=== PATIENT | female | born 1960 | race Caucasian/White ===

== ENCOUNTER → 2017-09-23 | Outpatient (CLI) | payer OTHER | LOC: FIMAGING 12:01 | PROVIDERS: ATTEND Family Medicine | DX: Z12.31 Encounter for screening mammogram for malignant neoplasm of breast (principal) | CPT/HCPCS: G0202 ==

== ENCOUNTER 2017-11-19 11:31 | Inpatient (IN) | payer OTHER ==
--- NOTE | 2017-11-19 11:45 | EDPHY ---
H & P Stated Complaint: Midsternal Cp since~1000am with bilat hand "tingling" Time Seen by Provider: 11/19/17 11:45 - Personal History Current Tetanus/Diphtheria Vaccine: Unsure Current Tetanus Diphtheria and Acellular Pertussis (TDAP): Unsure - Medical/Surgical History Hx Asthma: No Hx Chronic Respiratory Disease: No Hx Diabetes: No Hx Cardiac Disease: No Hx Renal Disease: No Hx Cirrhosis: No Hx Alcoholism: No Hx HIV/AIDS: No Hx Splenectomy or Spleen Trauma: No Other PMH: hypertension, COPD - Social History Smoking Status: Former smoker Constitutional: Initial Vital Signs Temperature (C) 37.0 C 11/19/17 11:36 Heart Rate 107 H 11/19/17 11:36 Respiratory Rate 16 11/19/17 11:36 Blood Pressure 145/101 H 11/19/17 11:36 O2 Sat (%) 97 11/19/17 11:36 O2 Delivery Mode Room Air Allergies/Adverse Reactions: benzoyl peroxide [Benzoyl Peroxide] Allergy (Verified 08/14/16 03:38) Home Medications: Medication Instructions Recorded Aspirin EC [Aspirin EC 81 mg (*)] 81 mg PO DAILY 08/14/16 Hydrochlorothiazide [HCTZ (*)] 25 mg PO DAILY 08/14/16 Losartan Potassium [Cozaar 50 mg 50 mg PO DAILY 08/14/16 (*)] Albuterol [Proventil Inhaler HFA 2 puffs IH Q4HRS PRN #1 mdi 08/17/16 (*)] Inhaler, Assist Devices [Space 1 each MC PRN PRN #1 spacer 08/17/16 Chamber Plus] Tiotropium Inhaler [Spiriva 18 mcg IH DAILY #1 mdi 08/17/16 Handihaler] predniSONE 40 mg PO DAILY #2 tablet 08/17/16 Medical Decision Making - Diagnostics Imaging Results: Imaging Impressions Chest X-Ray 11/19/17 11:48 Impression: Normal chest. Imaging: I viewed and interpreted images myself ED Course/Re-evaluation: CHIEF COMPLAINT: Chest pressure HISTORY OF PRESENT ILLNESS: The patient is a 56 y/o female with a history of COPD, anxiety, and tobacco use arriving with her roommate complaining of chest pressure and bilateral hand tingling onset at 10:00 this morning, 2.5 hours ago. She was driving when she developed sudden diffuse chest pressure followed by facial and bilateral hand tingling. Symptoms are still present, but have been slowly subsiding since onset. She notes she was moving boxes around earlier today and had no chest pain or dyspnea at that time. She has not been able to recreate or exacerbate her symptoms with movement. She remembers a similar episode to this many years ago that she was not evaluated for. She says her pressure currently feels like "maybe a toddler sitting there rather than a kid." No recent long travel or history of blood clots. No personal history of cardiac disease or prior cardiac testing. Strong family history of cardiac disease. REVIEW OF SYSTEMS: A 10 point review of systems was performed and is negative with the exception of the elements mentioned in the history of present illness. PHYSICAL EXAM: HR, BP, O2 Sat, RR. Temp noted General Appearance: Alert, well hydrated, appropriate, and non-toxic appearing. Obese. Head: Atraumatic without scalp tenderness or obvious injury Eyes: Strabismus, no trauma, no injection. Nose: Atraumatic, no rhinorrhea, clear. Throat: Mucus membranes moist. Neck: Supple, nontender, no lymphadenopathy. Respiratory: No retractions, no distress, no wheezes, and no accessory muscle use. Lungs are clear to auscultation bilaterally. Cardiovascular: Tachycardic regular rate and rhythm, no murmurs, rubs, or gallops. Good capillary refill all extremities. Gastrointestinal: Abdomen is soft, nontender, non-distended, no masses, no rebound, no guarding, no peritoneal signs. Musculoskeletal: Normal active ROM of all extremities, atraumatic. Neurological: Alert, appropriate, and interactive. Nonfocal neuro exam. Skin: No rashes, good turgor, no nodules on palpation. Past medical history: COPD, anxiety, panic attacks, blindness in right eye Past surgical history: Denies Family history: Father has CHF, pacemaker, defibrillator, hypercholesterolemia. Mother has hypertension and hypercholesterolemia. No cardiac issues in siblings. Social history: Former smoker, quit 1 year ago. PCP: [facility]. Roommate at bedside. DIAGNOSTICS/PROCEDURES/CRITICAL CARE TIME: The 12 lead EKG was interpreted by myself. Sinus tachycardia, occasional PVCs. See hard copy and/or "tracemaster" electronic copy for interpretation. Chest x-ray: negative DIFFERENTIAL DIAGNOSIS: The differential diagnosis for the patient's chest pain included but was not limited to myocardial ischemia, pulmonary embolus, chest wall pain, pleural inflammation, and pulmonary infectious causes. MEDICAL DECISION MAKING: This patient is a 56 y/o female with COPD and long smoking history who presents with a 2.5-hour history of chest pressure and bilateral hand tingling that is slowly improving but still present. Symptoms began while at rest. She has a strong family history for heart disease, though no personal diagnosed cardiac disease. Her lungs are clear and she is mildly tachycardic on exam. Pain is not reproducible with palpation or movement. No infectious symptoms. Plan for cardiac work up including IV, labs, EKG, chest x-ray. 324mg PO aspirin and 0.4mg SL nitro administered. Labs show normal d-dimer and troponin, hemoconcentration with Hgb of 20. This is likely related to her COPD, living at altitude, and smoking history. Due to this in combination with continuing chest pressure, I've recommended admission for provocative cardiac testing. Patient agrees to admission. 1340: Consulted with Dr. Yang, information consultant. She will consult during admission. Repeat troponin @ 16:00. Spoke with hospitalist service. Dr. Ardon accepts admission for chest pain and polycythemia. - Data Points Laboratory Results: Laboratory Results 11/19/17 11:50 11/19/17 11:50 11/19/17 11/19/17 11/19/17 11:50 11:50 11:50 WBC 9.98 10^3/uL H 10^3/uL (3.80-9.50) RBC 5.88 10^6/uL H 10^6/uL (4.18-5.33) Hgb 20.2 g/dL H* g/dL (12.6-16.3) Hct 54.1 % H % (38.0-47.0) MCV 92.0 fL fL (81.5-99.8) MCH 34.4 pg H pg (27.9-34.1) MCHC 37.3 g/dL H g/dL (32.4-36.7) RDW 12.5 % % (11.5-15.2) Plt Count 311 10^3/uL 10^3/uL (150-400) MPV 10.0 fL fL (8.7-11.7) Neut % (Auto) 75.1 % H % (39.3-74.2) Lymph % (Auto) 15.1 % % (15.0-45.0) [place] % (Auto) 5.9 % % (4.5-13.0) Eos % (Auto) 2.6 % % (0.6-7.6) Baso % (Auto) 1.0 % % (0.3-1.7) Nucleat RBC Rel Count 0.0 % % (0.0-0.2) Absolute Neuts (auto) 7.49 10^3/uL H 10^3/uL (1.70-6.50) Absolute Lymphs (auto) 1.51 10^3/uL 10^3/uL (1.00-3.00) Absolute Monos (auto) 0.59 10^3/uL 10^3/uL (0.30-0.80) Absolute Eos (auto) 0.26 10^3/uL 10^3/uL (0.03-0.40) Absolute Basos (auto) 0.10 10^3/uL 10^3/uL (0.02-0.10) Absolute Nucleated RBC 0.00 10^3/uL 10^3/uL (0-0.01) Immature Gran % 0.3 % % (0.0-1.1) Immature Gran # 0.03 10^3/uL 10^3/uL (0.00-0.10) PT 13.6 SEC SEC (12.0-15.0) INR 1.02 (0.83-1.16) APTT 28.7 SEC SEC (23.0-38.0) D-Dimer < 0.27 ug/mLFEU ug/mLFEU (0.00-0.50) Sodium 141 mEq/L mEq/L (135-145) Potassium 3.5 mEq/L mEq/L (3.5-5.2) Chloride 103 mEq/L mEq/L (97-110) Carbon Dioxide 20 mEq/l L mEq/l (22-31) Anion Gap 18 mEq/L H mEq/L (8-16) BUN 8 mg/dL mg/dL (7-23) Creatinine 0.8 mg/dL mg/dL (0.6-1.0) Estimated GFR > 60 Glucose 106 mg/dL H mg/dL (70-100) Calcium 10.7 mg/dL H mg/dL (8.5-10.4) Phosphorus 2.0 mg/dL L mg/dL (2.5-4.5) Troponin I < 0.012 ng/mL ng/mL (0.000-0.034) NT-Pro-B Natriuret Pep 46 pg/mL pg/mL (0-125) Medications Given: Discontinued Medications Aspirin (Aspirin) 324 mg PO EDNOW ONE Stop: 11/19/17 13:43 Last Admin: 11/19/17 13:56 Dose: 324 mg Nitroglycerin (Nitro-Bid 2%) 1 inch TP EDNOW ONE Stop: 11/19/17 13:43 Last Admin: 11/19/17 13:56 Dose: 1 inch Departure - Departure Disposition: [facility] Inpatient Acute Clinical Impression: Polycythemia Chest pain Qualifiers: Chest pain type: other chest pain Qualified Code(s): R07.89 - Other chest pain Condition: Fair Report Scribed for: Mathew Judd Report Scribed by: Honey Gillespie Date of Report: 11/19/17 Time of Report: 14:17
--- NOTE | 2017-11-19 11:46 | CPEKG ---
Heart Rate: 115 RR Interval: 522 P-R Interval: 144 QRSD Interval: 86 QT Interval: 320 QTC Interval: 443 P [place]: 68 QRS [place]: 41 T Wave [place]: -55 EKG Severity - ABNORMAL ECG - EKG Impression: SINUS TACHYCARDIA EKG Impression: PROBABLE LEFT ATRIAL ABNORMALITY EKG Impression: PROBABLE INFERIOR INFARCT, AGE INDETERMINATE Electronically Signed By: Mathew Judd 19-Nov-2017 13:56:06
[2017-11-19 12:04] LABS: INR 1.02 (0.83-1.16); PROTIME(PATIENT) 13.6 SEC (12.0-15.0)
[2017-11-19 13:34] LABS: PLATELET COUNT 311 10^3/uL (150-400)
[2017-11-19] MEDS ORDERED: NITROGLYCERIN 2% 1 GM PACKET TP ONE (13:42)
[2017-11-19] MEDS ORDERED: ASPIRIN 81 MG CHEWABLE TAB PO ONE (13:42)
[2017-11-19] MEDS ORDERED: ACETAMINOPHEN 325 MG TAB PO PRN (14:29)
[2017-11-19] MEDS ORDERED: ONDANSETRON DISINTEGRATING 4 MG TAB PO PRN (14:29)
[2017-11-19] MEDS ORDERED: ONDANSETRON 4 MG/2 ML VIAL IVP PRN (14:29)
[2017-11-19] MEDS ORDERED: NS 1,000 ML IV SCH (14:30)
[2017-11-19] MEDS ORDERED: ALBUTEROL 60 PUFFS/8 GM MDI IH PRN (15:08)
--- NOTE | 2017-11-19 15:58 | GHP ---
[f rep st] HISTORY AND PHYSICAL DATE OF ADMISSION: 11/19/2017 CHIEF COMPLAINT: Chest pressure with associated bilateral hand tingling. HISTORY OF PRESENT ILLNESS: The patient is a 56-year-old female with a history of COPD, who developed chest pressure with bilateral hand tingling that extended back to her lip area and to the top of her scalp area. Prior to this symptom occurring, she had been moving boxes up and down a flight of stairs. Her plan was to donate the boxes because she is in the process of moving to the [facility]. She has been under more stress than usual because of planning this move. After moving all the boxes, she rested for a while because she was very short of breath. The shortness of breath resolved. The chest pressure developed when she was en route driving to [facility] to drop off the boxes. She was not hyperventilating. She pulled off the side of the road because she got lightheaded and dizzy. She called her friend who brought her to the emergency room. During my interview, she continues to have the chest pressure, but it is better since the placement of a nitroglycerin patch. Also, today she has not been eating or drinking well. Her plan was to eat lunch after she donated her boxes. She also had a cup of coffee earlier this morning and has not been drinking much. During my interview she has been tachycardic. She says this is her baseline, that her heart always goes fast. She has not had this further evaluated. She has had an intentional weight loss of 25 pounds. PAST MEDICAL HISTORY: 1. COPD diagnosed in 2016. 2. Hypertension. 3. Amblyopia in the right eye. PAST SURGICAL HISTORY: 1. . 2. Breast lumpectomy that was noted to be benign. SOCIAL HISTORY: She has 2 children. She is a former smoker. She quit in 2016 after being admitted with COPD. She drinks a glass of wine with dinner. 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 She is in a relationship and plans to move to [place] to be with her significant other. FAMILY HISTORY: Her mother at age 69 from complications of pancreatic cancer and hypertension. She also had high cholesterol. Her father is still alive. He has congestive heart failure, coronary artery disease, pacer and defibrillator in place. ALLERGIES: Environmental. HOME MEDICATIONS: Losartan hydrochlorothiazide 100/25 mg 1 tab daily, Singulair 10 mg p.o. at bedtime, Advair 250/50 one puff b.i.d., Spiriva 18 mics daily, aspirin 81 mg daily, Proventil inhaler 2 puffs daily and Norvasc 10 mg daily. REVIEW OF SYSTEMS: A 10-point review of system was performed, was negative other than the pertinent positives in the HPI and past medical history. PHYSICAL EXAM: GENERAL: Nalini is a 56-year-old female who does not appear to be in any distress and appears to be her stated age. VITAL SIGNS: Blood pressure is 140/105, heart rate is 119, O2 sats on room air 96%, respiratory rate is 16, temperature is 37 degrees Celsius. EYES: Pupils are equal and reactive. Her right eye deviates outward. ENT: Normal ears, hearing intact. NECK: Trachea is midline. CARDIOVASCULAR: She is regular rate and rhythm. She is tachycardic. She does not have murmurs, rubs, or gallops noted. She has trace ankle edema. CHEST AND LUNGS: Normal respiratory effort. Clear without wheezing, rales, rhonchi. ABDOMEN: Soft, nontender. No rebound or guarding. SKIN: No rashes or ulcer. MUSCULOSKELETAL: Equal upper and lower extremity strength. PSYCHIATRIC: She is alert and oriented. Normal mood, affect, normal judgment, insight and normal memory. DATA: Reviewed. Chemistry panel shows a sodium 141, potassium 3.5, chloride of 103, CO2 of 20, BUN of 8, creatinine of 0.8, glucose of 106, calcium of 10.7 , phosphorus of 2. Troponin less than 0.012. BNP of 46. Coags show a D-dimer less than 0.27. Protime of 13.6, INR of 1.02. CBC shows a white blood cell count of 9.98, RBC of 5.88, hemoglobin of 20.2, hematocrit of 54.1, platelet count of 311. An EKG, which I viewed and evaluated myself, shows a sinus tachycardia. A chest x-ray was performed, which showed nothing acute. Reviewed her care with Mathew Judd, emergency room physician. ASSESSMENT AND PLAN: 1. Chest pressure. Will cycle her troponins. It does not appear that she is having an acute coronary syndrome. She could possibly have a pulmonary emboli, even though she has a stable D-dimer with her ongoing tachycardia. An echocardiogram has been ordered. She will be seen by Dr. Zahida Yang. Other differentials could be that she could possibly have costochondritis from actively moving boxes up and down the stairs. She does not appear to have any type of infectious etiology causing this. If troponin remain negative, will get a Lexiscan in the morning and make her NPO after midnight. 2. Tachycardia. Will check a TSH. She also could be dehydrated. She has not been drinking or eating well today. 3. Hemoconcentration with a hemoglobin of 20. This is likely related to her chronic obstructive pulmonary disease and possible dehydration. Will recheck her labs in the morning and hydrate overnight. 4. Hypertension. Will resume her home medications. 5. Deep vein thrombosis prophylaxis, low risk. 6. Length of stay: She will likely require less than a 2-midnight stay, which will make her observation status. /[id number]/MODL MTDD
--- NOTE | 2017-11-19 19:03 | GCON ---
[f rep st] CONSULTATION DATE OF CONSULTATION: 11/19/2017 CHIEF COMPLAINT: Chest pain. HISTORY OF PRESENT ILLNESS: We were asked by Edith Garsia NP, to visit with the patient. The patient is a pleasant 56-year-old female with a history of COPD that is not oxygen dependent. Jodi lan also has hypertension but no known history of coronary disease, heart failure, or arrhythmia. She was in her usual state of reasonably good health until this morning. She has been under significant stress due to an upcoming move and had been moving a lot of boxes up and down stairs. She felt dyspn eic related to this and then she laid down to rest. She used her inhaler. She then got in her car a nd started driving. At that point, she experienced chest pressure with bilateral arm tingling as wel l as some tingling and numbness in her face. Because of these symptoms, she presented to the ER. Fi rst EKG is nonischemic and 1st troponin is negative. She was given nitro paste and admitted for furt her observation. Upon my evaluation, she states that her symptoms have largely subsided. She has very mild (1/10) kris st pressure. Her shortness of breath is a little bit worse than normal this morning, but is now stab le. She had not noticed any palpitations. She felt a little bit lightheaded this morning, but did n ot have syncope. She does not have problems with lower extremity edema. In general, when she is a little bit more active she does notice some central chest pressure. She re ports having a stress test many years ago but none recently. REVIEW OF SYSTEMS: She had 2 days of fever and pharyngitis about a week ago, but states that this carrington s resolved. Otherwise, a full 10-point review is performed and is negative except that which is outl ined above. Her facial tingling has resolved. PAST MEDICAL HISTORY: 1. COPD. 2. Hypertension. 3. Amblyopia. 4. . 5. History of benign breast lumpectomy. OUTPATIENT MEDICATIONS: Losartan, hydrochlorothiazide, Singulair, Advair, Spiriva, aspirin, Proventi l, and Norvasc. SOCIAL HISTORY: The patient quit smoking about a year ago. She smoked on and off for 35 years. She has 1-2 glasses of wine nightly. She is an personnel training officer. FAMILY HISTORY: Father has a pacemaker, congestive heart failure, coronary disease with history of M I. PHYSICAL EXAM: VITAL SIGNS: Blood pressure 140/105, heart rate is 119, oxygen saturation 96% on kendal m air. She is afebrile. GENERAL: A well-appearing, middle-aged female in no acute distress. HEENT : Sclerae free and clear of jaundice. Mucous membranes are moist. CARDIOVASCULAR: JVP is less fide n 10. Carotids equal and 2+ without bruit. Regular rate and rhythm with occasional ectopy. No murm ur, rub, or gallop. LUNGS: Clear to auscultation without wheezes, rhonchi, or rales. ABDOMEN: Sof t, nontender, nondistended without bruits, masses, or hepatosplenomegaly. EXTREMITIES: Warm and wel l perfused without cyanosis, clubbing, or edema. No deformity. Intact distal pulses. NEURO: Alert and oriented x3 without gross focal neurologic deficits. LABORATORY DATA: White count 9.98 with a slight left shift. Hemoglobin 20, hematocrit 54.1, and adán telets are 311. D-dimer is negative. INR was 1. First troponin negative. BNP 46. TSH is normal. S odium 141, potassium 3.5, chloride 103, bicarb 20, BUN 8, creatinine 0.8. EKG reviewed by me shows sinus tachycardia at 115 beats per minute. Biatrial abnormality. Small inf erior Q-waves that are borderline diagnostic. IMAGING: Chest x-ray reviewed by me: No acute cardiopulmonary process. ASSESSMENT AND PLAN: A 56-year-old female with cardiac risk factors of past smoking, family history, overweight, and hypertension. She presents with chest pressure and associated bilateral arm tinglin g that has largely resolved. First EKG and first troponin are reassuring. It is also reassuring fide t she has a normal BNP. However, agree with observation for rule out myocardial infarction protocol and further risk stratification. 1. Chest pain: Cycle troponins. Agree with aspirin. If serial troponins are negative, she will carrington ve a nuclear stress test in the morning. Ideally, she could exercise on the treadmill, but if she is unable to reach target heart rate would have her do a Lexiscan stress test. We will order echocardi ogram for this evening to make sure she does not have ongoing wall motion abnormalities. 2. Chronic obstructive pulmonary disease. This may be more significant than at first diagnosis, giv en her polycythemia. She may benefit from outpatient pulmonary consult. She may also need sleep med icine evaluation. She is currently not hypoxic and on room air. Lungs are clear on exam and on x-ra y. 3. Hypertension. Slightly elevated. Continue home medications. Follow. Thank you for allowing us to participate in this patient's care. We will follow with you. /[id number]/MODL
--- NOTE | 2017-11-19 19:05 | ECHO ---
[email or web address] [address] [address] Main: [phone] Fax: Transthoracic Echocardiogram Name: KARLEE MCDANIEL MR#: [id number] Study Date: 11/19/2017 Study Time: 05:55 PM Date of : 1960 Age: 56 year(s) Height: ( ) Weight: ( ) BSA: Gender: Female Examination: Echo Indication: Chest Pain Image Quality: Technically Difficult Contrast: Requested by: Edith Garsia BP: / Heart Rate: Rhythm: Indication: Chest Pain Procedure Staff Corrections Sergeant: Beba Chowdary Reading Physician: Zahida Yang Requesting Provider: Zahida Yang Conclusions: Normal size left ventricle. Asymmetrical septal LV hypertrophy. Global hypercontractility of the left ventricle. EF is 71 %. No regional wall motion abnormality. Grade 1 diastolic dysfunction (abnormal relaxation). Normal size right ventricle. Normal RV function. Trivial to mild mitral regurgitation. No prior echo Measurements: Chambers Valvular Assessment AV/MV Valvular Assessment TV/PV Normal Normal Normal Name Value Range Name Value Range Name Value Range IVSd (2D): 1.3 cm (0.6 cm-1.1 AV meanP mmHg ( - ) cm) LVOT Vmax: 1.30 m/s (0.7 m/s-1.1 LVDd (2D): 3.5 cm (3.9 cm-5.3 m/s) cm) MV E Vmax: 0.57 m/s ( - ) LVDs (2D): 2.2 cm (2.1 cm-4 MV A Vmax: 0.93 m/s ( - ) cm) MV E/A: 0.61 ( - ) LVPWd (2D): 0.8 cm ( - ) LVEF (BP): 71 % (>=55 %) Continued Measurements: Chambers Valvular Assessment AV/MV Valvular Assessment TV/PV Name Value Name Value Name Value LADs Lon.5 cm MV DecTime: 177 m/s CVP (est.): 10 mmHg Patient: KARLEE MCDANIEL Study Date: 11/19/2017 Page 1 of 2 05:55 PM LA Area: 12.4 cm2 MV E/E' Lateral: 6.90 LA Volume: 28 ml TAPSE: 1.7 cm Additional Vessels Name Value Ao Ascendin.5 cm Findings: Left Ventricle: Normal size left ventricle. Asymmetrical septal LV hypertrophy. Global hypercontractility of the left ventricle. EF is 71 %. No regional wall motion abnormality. Grade 1 diastolic dysfunction (abnormal relaxation). Right Ventricle: Normal size right ventricle. Normal RV function. Left Atrium: The left atrium is normal in size. Right Atrium: The right atrium is normal in size. Mitral Valve: The mitral valve is normal in appearance and function. Trivial to mild mitral regurgitation. No mitral stenosis is present. Aortic Valve: The aortic valve is normal in appearance and function. There is no aortic valve regurgitation. No aortic valve stenosis is present. Tricuspid Valve: The tricuspid valve is normal in appearance and function. There is no significant tricuspid valve regurgitation. Pulmonic Valve: Pulmonary valve not well visualized. Aorta: Normal size ascending aorta measuring 3.5 cm. IVC: Normal size and course of the IVC. Pericardium: No pericardial effusion. There is pericardial fat. (No Signature Object) Patient: KARLEE MCDANIEL Study Date: 11/19/2017 Page 2 of 2 05:55 PM [id number]
[2017-11-19] MEDS: FLUTICASONE/SALMETER 250/50MCG DISKUS IH SCH (20:29)
[2017-11-19] MEDS: MONTELUKAST SODIUM 10 MG TAB PO SCH (20:30)
[2017-11-20 04:40] LABS: PLATELET COUNT 253 10^3/uL (150-400)
--- NOTE | 2017-11-20 08:22 | CPEKG ---
Heart Rate: 81 RR Interval: 741 P-R Interval: 152 QRSD Interval: 102 QT Interval: 380 QTC Interval: 441 P [place]: 75 QRS [place]: 47 T Wave [place]: 70 EKG Severity - BORDERLINE ECG - EKG Impression: SINUS RHYTHM EKG Impression: BORDERLINE T ABNORMALITIES, ANT-LAT LEADS Electronically Signed By: Fercho Zhang 20-Nov-2017 08:50:13
[2017-11-20] MEDS: FLUTICASONE/SALMETER 250/50MCG DISKUS IH SCH ×2 (08:26→20:10)
[2017-11-20] MEDS: TIOTROPIUM INHALER 18 MCG/DOSE 5 DOSE/MDI IH SCH (08:27)
[2017-11-20] MEDS ORDERED: REGADENOSON 0.4 MG/5 ML SYR IVP ONE (09:21)
[2017-11-20] MEDS: ASPIRIN EC 81 MG TAB PO SCH (09:27)
--- NOTE | 2017-11-20 09:53 | PDCARPN ---
Cardiology Progress Note Assessment/Plan: Assessment: 1. Chest pain 2. Hypertension Plan: 56-year-old female with hypertension, admitted with atypical chest discomfort. Has ruled out for myocardial infarction with 2 troponin levels. Lexiscan Cardiolite stress test was performed this morning, the results are pending at time of this dictation. 11/20/17 09:52 Subjective: Reports no further episodes of chest pain Time Spent With Patient: 10 min Objective: Vital Signs (8 Hrs) Temp Pulse Resp BP Pulse Ox 11/20/17 08:33 83 16 94 11/20/17 07:49 36.7 C 83 15 130/97 H 15 L 11/20/17 03:05 36.5 C 80 16 124/79 H 92 Intake/Output (24 Hrs) 11/18/17 11/19/17 11/20/17 11:59 11:59 11:59 Intake Total 800 Balance 800 Intake: Oral (ml) 700 IV Intake (ml) 100 Other: Weight 77.111 kg Intake Quantity Yes Sufficient Number of Voids Toilet 2 Result Diagrams: 11/20/17 03:36 11/20/17 03:36 Cardiac Labs: Cardiac Lab Results (72 Hrs) 11/19/17 11/19/17 17:50 16:50 Troponin I < 0.012 REJ Telemetry: Normal sinus rhythm ICD10 Worksheet Patient Problems: Problems Problem Status Onset Acute asthma Acute Hypoxia Acute Exacerbation of asthma Acute Chronic obstructive pulmonary disease with acute exacerbation Acute Chest pain Acute Polycythemia Acute
--- NOTE | 2017-11-20 10:11 | CPIP ---
[f rep st] INVASIVE CARDIAC PROCEDURE PROCEDURE PERFORMED: Lexiscan Cardiolite stress test. PROCEDURE: Appropriate consents were signed and monitoring was established on 2 [place] telemetry floor . Baseline EKG shows normal sinus rhythm without any acute ST or T-wave changes. After administrati on of Lexiscan, there were no changes in the EKG. The patient tolerated the procedure well without a ny immediate complications. The patient's nuclear stress test will be read by the radiologist and reported separately. /[id number]/MODL
[2017-11-20] MEDS ORDERED: [UNRECOGNIZED DRUG - OTHER] PO SCH (13:15)
[2017-11-20] MEDS ORDERED: LOSARTAN PO SCH (13:15)
[2017-11-20] MEDS ORDERED: HYDROCHLOROTHIAZIDE PO SCH (13:15)
--- NOTE | 2017-11-20 14:01 | HOSPPROG ---
Hospitalist Progress Note Assessment/Plan: # Acute chest pain - with associated arm tingling- symptoms have resolved overnight Telemetry (personally reviewed and interpreted) sinus rhythm Troponin <0.012 x 2 and EKGs overnight negative- oxygen saturations 94% on room air - stress nuclear imaging with abnormality - plan for rest images in a.m. - continue telemetry - continue aspirin 81 mg daily # hypertension- will reconcile patient's home Zestoretic # prophylaxis Lovenox # diet cardiac # disposition greater than 2 midnights as the patient requires additional diagnostic workup for chest pain I have discussed case with Dr. Zhang- we will plan for rest images in the morning Subjective: Chest pain resolved Objective: Vital Signs Temp Pulse Resp BP Pulse Ox 36.8 C 83 16 138/95 H 91 L 11/20/17 11:23 11/20/17 11:23 11/20/17 11:23 11/20/17 11:23 11/20/17 11:23 Laboratory Results 11/20/17 03:36 11/20/17 03:36 11/19/17 11/20/17 11/21/17 05:59 05:59 05:59 Intake Total 800 Balance 800 PT 13.6 SEC (12.0-15.0) 11/19/17 11:50 INR 1.02 (0.83-1.16) 11/19/17 11:50 - Physical Exam Constitutional: no apparent distress Eyes: anicteric sclera Ears, Nose, Mouth, Throat: moist mucous membranes Cardiovascular: regular rate and rhythym Respiratory: no respiratory distress, no rales or rhonchi Gastrointestinal: normoactive bowel sounds Genitourinary: no bladder fullness Skin: warm Musculoskeletal: No asymmetric calves Neurologic: AAOx3 Psychiatric: interacting appropriately Lymph, Heme, Immunologic: no cervical LAD ICD10 Worksheet Patient Problems: Problems Problem Status Onset Chest pain Acute Polycythemia Acute Acute asthma Acute Chronic obstructive pulmonary disease with acute exacerbation Acute Exacerbation of asthma Acute Hypoxia Acute
--- NOTE | 2017-11-20 14:40 | PDMN ---
Medical Necessity Medical necessity: C/M review: Patient meets INPT crtieria under MCG M-89 Chest pain: Acute chest pain associated with arm tingling (resolved overnight) , 11/20/2017 abnormal myocardial perfusion stress nuclear imaging concerning for possible cardiac ischemia requiring planned 11/21/2017 myocardial perfusion scan rest images, ongoing cardiac monitoring, comorbid hypertension. MD anticipates > 2 MN LOS for ongoing med nec for eval and TX of above.
--- NOTE | 2017-11-20 15:14 | ASMTCMCOM ---
CM Note CM Note Notes: Patient admitted for chest pain. Her stress test was abnormal, so she will be kept overnight for additional imaging tomorrow morning. Per PT notes, patient lives independently and is getting ready to move to [place] to be with her boyfriend. I anticipate that she will discharge independently when medically stable. CM available if needs change. Date Signed: 11/20/2017 03:14 PM Electronically Signed By:Gisele Schilling RN
[2017-11-20] MEDS: HYDROCHLOROTHIAZIDE 25 MG TAB PO SCH (17:14)
[2017-11-20] MEDS: LOSARTAN POTASSIUM 50 MG TAB PO SCH (17:15)
[2017-11-20] MEDS: MONTELUKAST SODIUM 10 MG TAB PO SCH (20:10)
[2017-11-21] MEDS: LOSARTAN POTASSIUM 50 MG TAB PO SCH (08:44)
[2017-11-21 08:45] VITALS: BP 117/71; PULSE 90; RESP 18; TEMP 98.3; O2SAT 93
[2017-11-21] MEDS: HYDROCHLOROTHIAZIDE 25 MG TAB PO SCH (08:45)
[2017-11-21] MEDS: ASPIRIN EC 81 MG TAB PO SCH (08:45)
[2017-11-21] MEDS: FLUTICASONE/SALMETER 250/50MCG DISKUS IH SCH (08:45)
[2017-11-21] MEDS: TIOTROPIUM INHALER 18 MCG/DOSE 5 DOSE/MDI IH SCH (08:50)
--- NOTE | 2017-11-21 10:21 | PDCARPN ---
Cardiology Progress Note Chief Complaint: CP Assessment/Plan: Assessment: atypical CP Plan: 11/21/17 10:19 Awaiting final stress test result If gross abnormality present, consider LHC Otherwise continue present therapy Reviewed/Discussed With: hospitalist Time Spent With Patient: 25 min Objective: Vital Signs (8 Hrs) Temp Pulse Resp BP Pulse Ox 11/21/17 08:44 117/71 11/21/17 08:00 36.8 C 90 18 117/71 93 11/21/17 04:00 36.6 C 75 16 106/77 91 L Intake/Output (24 Hrs) 11/20/17 11/21/17 11/22/17 05:59 05:59 05:59 Intake Total 400 Balance 400 Intake: Oral (ml) 400 IV Intake (ml) 0 Other: Intake Quantity Yes Sufficient Number of Voids Toilet 3 Number of Stools Toilet 0 Result Diagrams: 11/20/17 03:36 11/20/17 03:36 - Physical Exam Constitutional: healthy appearing Eyes: PERRL Ears, Nose, Mouth, Throat: moist mucous membranes Cardiovascular: regular rate and rhythm Peripheral Pulses: 1+: femoral (R), femoral (L) Respiratory: clear to auscultate bilat Gastrointestinal: normoactive bowel sounds Genitourinary: no suprapubic tenderness Skin: no rashes Musculoskeletal: no muscular tenderness Neurologic: AAOx3 Psychiatric: cooperative Lymph, Heme, Immunologic: no lymphadenopathy ICD10 Worksheet Patient Problems: Problems Problem Status Onset Chest pain Acute Polycythemia Acute Acute asthma Acute Chronic obstructive pulmonary disease with acute exacerbation Acute Exacerbation of asthma Acute Hypoxia Acute
--- NOTE | 2017-11-21 19:23 | GDS ---
[f rep st] DISCHARGE SUMMARY DISCHARGE DIAGNOSES: Include: 1. Acute chest pain. 2. Hypertension. HISTORY OF PRESENT ILLNESS: A 56-year-old female with a history of hypertension who presents with co mplaints of chest pain and upper extremity tingling. For details of the patient's initial presentati on, please see the history and physical dated 11/20/2017. CONSULTATIVE SERVICES: PROCEDURES: On 11/20/2017, patient underwent myocardial perfusion scanning, which showed no inducibl e ischemia. HOSPITAL COURSE: By issue: 1. Chest pain. Patient was admitted with concerning symptoms. Was seen by Cardiology and admitted to PCU for serial troponins and EKGs. Patient ruled out overnight and was sent for stress imaging wi th nuclear scan that showed an abnormality in perfusion. Patient was kept overnight for rest images. Rest images the following morning confirmed no inducible ischemia. Patient is discharged with outp atient followup with her primary care provider and ongoing treatment of her diagnosis of hypertension . 2. Hypertension. Patient was continued on her home medications without alteration. She will follow with her primary care provider for ongoing titration and monitoring of her blood pressures. MEDICATIONS AT TIME OF DISPOSITION: Please reference med rec printed on 11/21/2017. FOLLOWUP APPOINTMENTS: Include with her primary care provider for ongoing management of her medical comorbidities. PENDING STUDIES: At the time of this dictation are none. I spent greater than 30 minutes in the planning and coordination of this discharge. /[id number]/MODL
--- NOTE | 2017-11-22 12:43 | ASDISCHSUM ---
Discharge Information Plan Status:Home with No Needs Medically Cleared to Leave:11/20/2017 Discharge Date:11/21/2017 01:00 PM CM D/C Disposition: ADT D/C Disposition:Home, Routine, Self-Care Projected Discharge Date:11/21/2017 12:00 AM Transportation at D/C: Discharge Delay Reason: Follow-Up Date:11/21/2017 12:00 AM Discharge Slot: Final Diagnosis: Placement Information Patient Contact Information Contact Name:TRI Relationship:Other Address: Work Phone: City: [facility] Phone: State/Zip Code: Email: Financial Information Financial Class:Self-Pay Primary Plan Desc:[employer] Primary Plan Number:[id number] Secondary Plan Desc: Secondary Plan Number: Assessment Information [facility] CM Progress Note CM Note CM Note Notes: Patient admitted for chest pain. Her stress test was abnormal, so she will be kept overnight for additional imaging tomorrow morning. Per PT notes, patient lives independently and is getting ready to move to [place] to be with her boyfriend. I anticipate that she will discharge independently when medically stable. CM available if needs change. Date Signed: 11/20/2017 03:14 PM Electronically Signed By:Gisele Schilling RN Intervention Information
== END 2017-11-21 13:00 | disposition home or self-care (01) | DRG 313 ==
LOC: F2W 14:40 → OBSVTOIN 11-20 13:09
PROVIDERS: ADMIT Hospitalist; ATTEND Hospitalist
DX: R07.89 Other chest pain (principal); D75.1 Secondary polycythemia; I10 Essential (primary) hypertension; R00.0 Tachycardia, unspecified; J44.9 Chronic obstructive pulmonary disease, unspecified; F41.9 Anxiety disorder, unspecified; H53.001 Unspecified amblyopia, right eye; Z82.49 Family history of ischemic heart disease and other diseases of the circulatory system; Z87.891 Personal history of nicotine dependence
CPT/HCPCS: A9500; G0378; J2785